=== PATIENT | male | born 1965 | race Caucasian/White ===

== ENCOUNTER 2019-06-03 16:42 | Emergency (ER) | payer OTHER ==
[~2019-06-03] VITALS: Ht 182.9 cm; Wt 181.4 kg
[2019-06-03] MEDS ORDERED: LISINOPRIL-HCT1 EAC2 PO (20:41)
[2019-06-03] MEDS ORDERED: VITAMIN D21250 MC1 PO (20:41)
[2019-06-03] MEDS ORDERED: PANTOPRAZOLE SO40 M1 PO (20:41)
[2019-06-03] MEDS ORDERED: METFORMIN HCL500 M1 PO (20:42)
[2019-06-03] MEDS ORDERED: ATORVASTATIN CA20 MG PO (20:42)
[2019-06-03] MEDS ORDERED: LEVO-T25 MCG PO (20:42)
[2019-06-03] MEDS ORDERED: CARVEDILOL25 MG PO (20:42)
[2019-06-03] MEDS ORDERED: ALLOPURINOL 30300 M1 PO (20:42)
[2019-06-03 21:00] LABS: HEMATOCRIT 42.2 % (42.0-52.0); HEMOGLOBIN 13.7 gm/dL (14.0-18.0); MCH 29.9 pg (26.0-34.0); MCHC 32.6 g/dL (28.0-37.0); MCV 91.8 fL (80.0-100.0); PLATELET COUNT 180 thou/uL (150-400); RBC 4.59 mil/uL (4.50-6.00); RDW 15.6 % (10.5-14.5); WBC 3.7 thou/uL (4.0-11.0)
[2019-06-03 21:11] LABS: CALCIUM 9.1 mg/dL (8.5-10.1); POTASSIUM 3.6 mmol/L (3.5-5.1)
[2019-06-03 21:16] LABS: ALBUMIN 3.7 g/dL (3.4-5.0); TOTAL BILIRUBIN 0.6 mg/dL (<0.1-1.0); TOTAL PROTEIN 7.8 g/dL (6.4-8.2)
[2019-06-03 21:23] LABS: ABSOLUTE NEUTROPHILS 2.4 thou/uL (1.4-8.2); ANISOCYTOSIS 1+; ATYPICAL LYMPHS 4 %; PLATELET ESTIMATE NORMAL
[2019-06-03] MEDS ORDERED: TAMIFLU75 MG PO (22:24)
[2019-06-03 22:40] VITALS: BP 147/91
== END 2019-06-03 22:45 | disposition home or self-care (01) ==
LOC: ER 16:42
PROVIDERS: Nurse Practitioner
DX: J11.1 Influenza due to unidentified influenza virus with other respiratory manifestations (principal)